=== PATIENT | female | born 1940 | race Caucasian/White ===

== ENCOUNTER → 2016-09-23 | Day surgery (SDC) | payer OTHER ==
[~2016-09-23] MED LIST: ASPIRIN PO; ASPIRIN81 M1 PO; BACTRIM DS TABL1 TA1 PO; CALCIUM 500 +1 EAC2 PO; CALCIUM CARBON600 M1 PO; CLARITIN10 M3 PO; DEXFOL PO; FISH OIL 1,0001 CAP PO; HCTZ PO; HYDROCHLOROTHIA25 MG PO; HYDROCODON-ACE1 EAC7 PO; K-DUR20 ME2 PO; KRILL OIL 1,001 EAC1 PO; LASIX PO; LASIX20 MG PO; LISINOPRIL PO; LISINOPRIL20 MG PO; METOPROLOL SUCC25 MG PO; METOPROLOL SUCC50 MG; METOPROLOL TAR25 MG PO; METOPROLOL TART25 MG PO; MOBIC PO; MOBIC15 MG PO; MULTI-VITAMIN1 EAC1 PO; NASACORT10.8 ML; NEURONTIN100 MG PO; OYSTER CALCIUM500 MG PO; PERCOCET5/325 PO; POTASSIUM CITR15 MEQ PO; PRILOSEC PO; PRILOSEC20 MG PO; PRINIVIL20 M1 PO; TOPROL XL PO; TUMERIC PO; VITAMIN C500 M1 PO; VITAMIN D PO; VITAMIN D1000 UNI1 PO; VITAMIN D1000 UNI2 PO; ZESTRIL40 MG PO; ZOFRAN PO; ZYRTEC10 M1 PO; [UNRECOGNIZED DRUG - OTHER]
--- NOTE | ~2016-09-23 | OR ---
Unit #: [id number] #: [id number] Patient: GUERO BERMUDEZ [id number] [address] [address] [id number] O MR#: [id number] NAME: GUERO BERMUDEZ ROOM: Date of Procedure: 09/23/2016 Admission Date: 09/23/2016 Surgeon: Carlos A Young M.D. : 1940 Attending Physician: Eric Young Primary Care Physician: Ayo Mcgrath M.D. [facility] OPERATIVE NOTE PROCEDURE PERFORMED Lumbar epidural steroid injection under x-ray guided needle placement with provider administered conscious sedation. PREOPERATIVE DIAGNOSES 1. Acute lumbar radiculitis. 2. Spinal stenosis, lumbosacral spine. 3. Herniated disk, L3-L4. 4. Degenerative joint disease, lumbosacral spine. 5. Degenerative disk disease, lumbosacral spine. INDICATIONS FOR PROCEDURE The patient presents today with a longstanding history of chronic intermittent lumbar radiculitis pain, which is generally fairly well managed medically with ongoing and continuous conservative measures consisting of nonsteroidal medication. She had an exacerbation approximately 16 months ago, which had failed to respond to conservative measures but did respond to a single epidural injection. She has had a recurrence of that exact radicular pain which is compatible with her x-ray studies. Her relief with the first epidural steroid injection was approximately 80% to 100% for 16 months. She now has approximately 1 to 2-month history of crescendo pattern of pain, which is failing her usual and ongoing conservative measures. After discussing risks and benefits of proceeding today with a lumbar approach epidural steroid injection and followup visit scheduled for Wednesday, 10/12, the patient agreed this would be the appropriate course of action. DESCRIPTION OF PROCEDURE She was then taken to the operating room, where she was prepped and draped in sterile manner. Standard monitors were applied. She was sedated with 2 mg of IV Versed and lumbar epidural space accessed at the L3-L4 level using loss of resistance technique and x-ray guidance. Needle placement was confirmed with injection of 2 mL of Omnipaque. Dye flow on the right of the spinal column was largely superior and on the left was largely inferior. Following successful needle placement confirmation which required an x-ray time of 16 seconds, the patient received an injectate containing 2 mL of normal saline, 2 mL of 0.25% bupivacaine, and 80 mg of methylprednisolone. She tolerated this procedure well. She was discharged home with followup instructions, which include return dates as described above. At her return visit, we will most likely initially access the epidural space at the L4-L5 level and proceed depending on direction of dye flow. Unit #: [id number] #: [id number] Patient: GUERO BERMUDEZ Dictated by... Nikita Latham/erwin TD: 09/23/2016 14:52 JOB #: [id number] CC: Joel Woodard M.D. [facility] OPERATIVE NOTE Page 1 of 1 X Eric Young MD X PROCEDURE OPERATIVE NOTE
== END | disposition home or self-care (01) ==
LOC: CCSC 09:50
DX: G89.29 Other chronic pain (principal); M51.17 Intervertebral disc disorders with radiculopathy, lumbosacral region; M48.07 Spinal stenosis, lumbosacral region; M51.16 Intervertebral disc disorders with radiculopathy, lumbar region; K21.9 Gastro-esophageal reflux disease without esophagitis; M19.90 Unspecified osteoarthritis, unspecified site; I34.1 Nonrheumatic mitral (valve) prolapse; Z90.89 Acquired absence of other organs; Z90.49 Acquired absence of other specified parts of digestive tract; Z98.51 Tubal ligation status; Z90.710 Acquired absence of both cervix and uterus; Z85.828 Personal history of other malignant neoplasm of skin; Z88.8 Allergy status to other drugs, medicaments and biological substances; Z79.899 Other long term (current) drug therapy
CPT/HCPCS: 82947; J1040; J2250

== ENCOUNTER → 2016-10-12 | Day surgery (SDC) | payer OTHER ==
--- NOTE | ~2016-10-12 | OR ---
Unit #: [id number] #: [id number] Patient: GUERO BERMUDEZ [id number] [address] [address] [id number] O MR#: [id number] NAME: GUERO BERMUDEZ ROOM: Date of Procedure: 10/12/2016 Admission Date: 10/12/2016 Surgeon: Carlos A Young M.D. : 1940 Attending Physician: Eric Young Primary Care Physician: Ayo Mcgrath M.D. [facility] OPERATIVE NOTE PROCEDURE PERFORMED Lumbar epidural steroid injection under x-ray guided needle placement with provider administered conscious sedation. PREOPERATIVE DIAGNOSES 1. Acute lumbar radiculitis. 2. Spinal stenosis, lumbosacral spine. 3. Degenerative joint disease, lumbosacral spine. 4. Degenerative disk disease, lumbosacral spine. INDICATIONS FOR PROCEDURE The patient presented today status post one previous lumbar approach epidural steroid injection at the L3-L4 level, which had failed to adequately provide pain relief for her previous lumbar radiculitis, which had previously failed to respond to conservative measures. She got some initial relief; however, relief was not complete nor it was completely long lasting. She had return of symptoms prior to her return visit today. After discussing risks and benefits of proceeding today with a dual needle access technique, the patient agreed this would be the appropriate course of action. DESCRIPTION OF PROCEDURE She was then taken to the operating room, where she was prepped and draped in a sterile manner. Standard monitors were applied. She was sedated initially with 2 mg of IV Versed and required an additional 1 mL of IV fentanyl throughout the duration of procedure. Initial attempts to access lumbar epidural space at the L4-L5 level were unsuccessful; however, we were successful in access at the L5-S1 level and the patient received 4 mL normal saline and 40 mg of methylprednisolone. Following successful needle placement at the L5-S1 using loss of resistance technique and x-ray guidance, needle placement having previously been confirmed at the L5-S1 with injection of 2 mL of Omnipaque, where there were approximately 80% superior dye flow. Following this, unsuccessful attempts were made at the L3-L4 and L2-L3 level in the prone position. The patient was then placed into the sitting position and the L3-L4 level was accessed easily using loss of resistance technique and x-ray guidance. Again, needle placement was confirmed with injection of 2 mL of Omnipaque. Again, dye flow was approximately 80% superior. Following successful needle placement confirmation with total time of x-ray 26 seconds for both needles to be placed, the patient received an injectate at the L3-L4 level containing 4 mL normal saline and 40 mg of methylprednisolone. For a total day, she had 8 mL of normal saline and 80 mg of methylprednisolone injectate. She tolerated this procedure well. She was discharged home with followup Unit #: [id number] #: [id number] Patient: GUERO BERMUDEZ instructions, which include an offer to return to this clinic as early as 01/20/2017 if we could be of further service to her. Dictated by... Nikita Latham/erwin TD: 10/13/2016 03:30 JOB #: [id number] [facility] OPERATIVE NOTE Page 1 of 1 X Eric Young MD PROCEDURE OPERATIVE NOTE
== END | disposition home or self-care (01) ==
LOC: CCSC 12:21
DX: M51.17 Intervertebral disc disorders with radiculopathy, lumbosacral region (principal); M47.27 Other spondylosis with radiculopathy, lumbosacral region; M48.07 Spinal stenosis, lumbosacral region; K21.9 Gastro-esophageal reflux disease without esophagitis; M19.90 Unspecified osteoarthritis, unspecified site; Z85.828 Personal history of other malignant neoplasm of skin; Z88.8 Allergy status to other drugs, medicaments and biological substances; Z79.1 Long term (current) use of non-steroidal anti-inflammatories (NSAID); Z79.891 Long term (current) use of opiate analgesic; Z79.899 Other long term (current) drug therapy; Z90.49 Acquired absence of other specified parts of digestive tract; Z90.710 Acquired absence of both cervix and uterus; Z98.51 Tubal ligation status; Z98.42 Cataract extraction status, left eye; Z98.41 Cataract extraction status, right eye; Z96.1 Presence of intraocular lens; Z98.890 Other specified postprocedural states
CPT/HCPCS: J1040; J2250; J3010